=== PATIENT | female | born 1945 | race Caucasian/White ===

== ENCOUNTER 2017-04-07 12:14 | Day surgery (SDC) | payer MEDICARE, BC ==
--- NOTE | 2017-04-02 18:28 | PREOPHP ---
DATE OF ADMISSION: 04/07/2017 REASON FOR CONSULTATION: Consultation requested by Dr. Leo Rievro for medical evaluation and clearance of a 72-year-old woman about to undergo surgery. Thank you, Dr. Rivero, for allowing us to participate in the care of this patient. HISTORY OF PRESENT ILLNESS: Zeina Small is a 72-year-old woman, issues with abdominal wall hernias, had 1 repaired and removed in 09/2015. It has recurred at this point and is scheduled for correction of that particular hernia at this point. PAST MEDICAL AND SURGICAL HISTORY: The patient, as mentioned above, had an incisional hernia repair done a year and a half ago. Also, had left and right mastectomies for breast cancer with a prosthesis on the right somehow not on the left laparoscopic cholecystectomy, had a tubal ligation and had a left hip replacement. She has had no medical hospitalizations other than for chemotherapy for her breast cancer and also had radiation treatment for her breast cancer. She has broken a couple of toes, but no major big bones. She takes medications given to her by her oncologist for targeted therapy for her breast cancer which is metastatic. ALLERGIES: SHE IS ALLERGIC TO ADHESIVE TAPE. SOCIAL HISTORY: The patient is single, has no children. She does not smoke or drink alcohol or coffee. Usually has no difficulty sleeping at night. FAMILY HISTORY: Both parents are . Father in his 90s of old age, mother in her 80s of an accident. Three siblings have . There is cancer in the family. She knows of no diabetes, heart, hypertension, or stroke. REVIEW OF SYSTEMS: HEENT: Occasional tension headaches, but not usually. CARDIORESPIRATORY: Denies any chest pain or shortness of breath. GASTROINTESTINAL: No melena or hematemesis, but is LACTOSE INTOLERANT. GENITOURINARY: No urgency, frequency. GYNECOLOGIC: Postmenopause. MUSCULOSKELETAL: For arthritis. NEUROPSYCHIATRIC: Unremarkable. GENERAL HEALTH: As above. PHYSICAL EXAMINATION: VITAL SIGNS: The patient's blood pressure was 130/75, pulse was 69 and regular , respirations were 18, temperature 98, height 5 feet 6 inches, weight 151 pounds. GENERAL: The patient was noted to be a well-developed, well-nourished female, alert and cooperative, in no apparent acute distress, well oriented to time, place, and person. HEAD, EARS, EYES, NOSE AND THROAT: Head was atraumatic. Eyes: Pupils were equal, reactive to light and accommodation. Fundi were benign. Tympanic membranes were unremarkable. Nose was negative. Mouth was unremarkable. Fair oral hygiene was present. NECK: Supple without any rigidity. Trachea was midline. Thyroid was within normal limits. Neck veins were flat. Carotid pulses were equal. No bruits were heard. BACK: Unremarkable. CHEST: Revealed evidence of bilateral mastectomies with a small implant on the right and possible on the left. No breast or axillary masses being palpable. LUNGS: Clear to percussion and auscultation. HEART: PMI is fifth intercostal space at the midclavicular line. Regular sinus rhythm was noted. No significant murmurs, rubs, or gallops being elicited. ABDOMEN: Soft, good bowel sounds were noted. Scars from prior surgery was noted and a suprapubic hernia was noted approximately a size of an orange. There was no other organomegaly, masses, or tenderness. GENITALIA: Normal female external genitalia. PELVIC/RECTAL: Up to date with her dress draper. EXTREMITIES: Did not reveal any clubbing, edema or cyanosis. Scar was noted from her prior joint replacement. Peripheral pulses were physiologic. SKIN: Moist and warm without any eruptions. No gross lymphadenopathy was noted. NEUROLOGIC: Grossly intact. IMPRESSION: 1. Abdominal wall or suprapubic hernia. 2. Post bilateral mastectomy for breast cancer. 3. Menopausal syndrome. 4. Hyperlipidemia. 5. Stable health. LABORATORY DATA: Review of laboratory and other data revealed the following: The patient's chemistry panel including electrolytes, glucose, BUN, creatinine, liver function tests, iron was minimally low, CBC, UA, PT, PTT and sed rate were basically normal. The patient's EKG and chest x-ray done less than a month ago were all within acceptable limits. Some nonspecific ST-T wave changes were noted to have stable EKG. DISCUSSION: I see no contraindication in this patient undergoing current proposed surgery under desired form of anesthesia and feels she is a suitable candidate at this particular point in time. Should any medical problems arise during her stay at [facility], we will be more than happy to follow her up at the appropriate times. Thank you again, Dr. Rivero, for participating and allowing us to participate in the care of our patient. Dictated By: STEPHANY SZYMANSKI MD SS/KONSTANTIN Conf#: [id number] DID#: [id number] CC: АННА RIVERO MD;*EndCC* MTDD
[~2017-04-07] VITALS: Ht 167.6 cm; Wt 68.0 kg
[2017-04-07] VITALS (31 sets, daily range): BP systolic 138–205; BP diastolic 66–94; PULSE 74–96; RESP 12–31; Ht 167.6 cm; Wt 68.0 kg
[~2017-04-07 12:14] MED LIST: ATOR20TA38 PO; EXEM25TA PO; POTA25TA PO; SERT50TA6 PO
[2017-04-07] MEDS ORDERED: EVER10TA PO (12:45)
[2017-04-07] MEDS ORDERED: POTA20TA96 PO (12:46)
[2017-04-07] MEDS ORDERED: CEFAZOLIN 2 GM/50 ML (PMX) 50 ML IVPB ONE (13:30)
--- NOTE | 2017-04-07 14:17 | HPN ---
Date/Time of Note Date/Time of Note DATE: 04/07/17 TIME: 14:17 Interval H&P Admission Note Pt. seen H&P reviewed: No system changes АННА RIVERO MD Apr 07, 2017 14:17
[2017-04-07] MEDS ORDERED: LIDOCAINE 2% (SDV) 5 ML INJ ONE (14:35)
[2017-04-07] MEDS ORDERED: PROPOFOL 20 ML ONE (14:35)
[2017-04-07] MEDS ORDERED: ONDANSETRON 4 MG INJ ONE (14:36)
[2017-04-07] MEDS ORDERED: BUPIVACAINE 0.25%/EPI (SDV) 30 ML INJ ONE (14:36)
[2017-04-07] MEDS ORDERED: LIDOCAINE 1% (MPF) 30 ML INJ ONE (14:36)
[2017-04-07] MEDS ORDERED: ROCURONIUM 50 MG INJ ONE (14:37)
[2017-04-07] MEDS ORDERED: FENTAnyl 50 MCG/ML VIAL ONE (14:39)
[2017-04-07] MEDS ORDERED: CEFAZOLIN 1 GM INJ ONE ×2 (15:02→15:27)
[2017-04-07] MEDS ORDERED: STERILE WATER 1L IRRIG BTL IRR ONE (15:58)
[2017-04-07] MEDS ORDERED: GLYCOPYRROLATE 0.4 MG INJ ONE (15:58)
[2017-04-07] MEDS ORDERED: NEOSTIGMINE 3 MG/3 ML SYRINGE ONE (16:17)
[2017-04-07] MEDS ORDERED: LIDOCAINE 1% (MPF) 30 ML INJ INJ ONE (16:36)
[2017-04-07] MEDS ORDERED: BUPIVACAINE 0.25%/EPI (SDV) 10 ML INJ INJ ONE (16:37)
[2017-04-07] MEDS: LABETALOL HCL 20MG INJ IV PRN ×3 (17:05→18:41)
[2017-04-07] MEDS ORDERED: LABETALOL HCL 20MG INJ ONE (17:09)
--- NOTE | 2017-04-07 17:24 | OPR ---
Date/Time of Note Date/Time of Note DATE: 04/07/17 TIME: 17:04 Operative Report Procedure Date: Apr 07, 2017 Preoperative Diagnosis . Postoperative Diagnosis . Surgeon . Egg Worker . Anesthesia Type: general Estimated Blood Loss: other Transfusion none Specimen . Grafts/Implants . Complications none Procedure Description Preoperative Diagnosis: Ventral suprapubic incisional hernia Postoperative Diagnosis: 1. Ventral suprapubic incisional hernia 2. Significant adhesions Operation Performed: 1. Laparoscopic ventral incisional herniorrhaphy 2. Laparoscopic extensive lysis of adhesions 3. [place] anesthetic [place], [id number] 4. Laparoscopic guided bilateral transversus abdominis plane block Surgeon: Robbie Martinez MD Egg Worker: Dunia Welch NP Anesthesia: general plus local plus regional Anesthesiologist: ELSA Funes Estimated Blood Loss: 20 ml's Specimens: None Tubes/Drains: [address] circular mesh Secure strap tacker Complications: None Pt Condition Post Procedure: stable Disposition: PACU Indications 72-year-old female here for ventral herniorrhaphy. She has had a tram for reconstruction with resultant hernias. Patient had previous repair at different site that is still intact. However, she has developed hernia in left suprapubic region. Risks include but are not limited to bleeding, infection, abscess, seroma, leak , damage to intestines or any intra-abdominal/intrapelvic structures, hernia formation or recurrent, chronic pain, need for re-operations or further surgeries, NE, stroke, PE, DVT, pneumonia, organ failures, or even . Procedure Description: Patient was brought and placed supine on the operating table SCDs were placed, preoperative antibiotics were administered, all pressure points were well-padded , Both arms were tucked, and after induction of anesthesia patient was prepped and draped in usual sterile fashion and timeout was performed. Incision was made in the left upper quadrant, and using Optiview port and a 5 mm 0 scope abdomen was entered and insufflated to 15mmHg. Laparoscopy was performed with a 5 mm 30 scope. No injuries were identified. Another 5 mm port and a 12 mm port were placed in the right lower quadrant. 3 cm ventral hernia was identified suprapubically. There was extensive adhesions of omentum to the abdominal wall. All port sites were injected with half percent Marcaine with epi and 1% lidocaine prior to any incisions. Bilateral transversus abdominis plane block was performed under laparoscopic visualization to aid with pain control intra-and postoperatively. Using sharp dissection I was able to open up enough space to allow repair of the ventral hernia. There was extensive adhesions of omentum to abdominal wall. There was complete hemostasis after ligasure used to control oozing. Using Endo Close, #1 Vicryl sutures were placed across the defect to approximated in a [id number] manner. Mesh was placed through the 12 mm port intra-abdominally with 4 tacking sutures of #1 Vicryl. After the mesh was positioned covering all hernia sites with at least 5 cm coverage on either side , transfacial sutures were exteriorized with an Endo Close. Then the secure strap tacker was used to tack the mesh circumferentially after the abdominal pressure was decreased to 10. There was complete hemostasis. 12 mm made port site fascia was closed with Endo Close and 0 Vicryl in a figure- of-eight manner. Ports and CO2 were removed under direct visualization. There was complete hemostasis. Wounds were thoroughly irrigated skin was closed with 4 -0 Monocryl in subcuticular fashion. Dermabond was applied. Patient was extubated and transferred to recovery room in stable condition and all counts were correct and the end of the operation 2. Abdominal binder was applied. Copies To: CC: STEPHANY SZYMANSKI MD, SAMUEL MD Apr 07, 2017 17:18
[2017-04-07] MEDS ORDERED: ONDANSETRON 4 MG INJ IV PRN ×2 (17:30)
[2017-04-07] MEDS ORDERED: HYDROCODONE/APAP (5/325) TAB PO PRN (17:30)
[2017-04-07] MEDS ORDERED: morphine 2 MG INJ IV PRN (17:30)
[2017-04-07] MEDS ORDERED: FENTAnyl 50 MCG/ML VIAL IV PRN (17:30)
[2017-04-07] MEDS ORDERED: HYDROmorphONE (0.2 MG/ML) 10ML SYG IV PRN ×2 (17:30)
[2017-04-07] MEDS: hydrALAzine 20 MG INJ IV PRN ×2 (17:51→18:11)
[2017-04-07] MEDS ORDERED: ACETAMINOPHEN 325 MG TAB PO PRN (20:00)
[2017-04-07] MEDS ORDERED: ZOLPIDEM 5 MG TAB PO PRN (20:00)
[2017-04-07] MEDS ORDERED: NACL 0.9% 3 ML SYG IV SCH (20:00)
[2017-04-07] MEDS: LISINOPRIL 20 MG TAB PO SCH (21:00)
[2017-04-07] MEDS: METOPROLOL (XL) 50 MG TAB PO SCH (21:00)
[2017-04-07] MEDS: FAMOTIDINE 20 MG TAB PO SCH (23:21)
[2017-04-07] MEDS: HEPARIN 5,000 UNIT/0.5 ML VIAL SC SCH (23:24)
[2017-04-07] MEDS: LACTATED RINGER'S 1,000 ML IV SCH (23:48)
[2017-04-08 00:28] VITALS: BP 112/75; RESP 18
[2017-04-08] MEDS: LACTATED RINGER'S 1,000 ML IV SCH (02:50)
[2017-04-08] MEDS: HYDROCODONE/APAP (5/325) TAB PO PRN ×2 (04:15→10:06)
[2017-04-08 05:56] LABS: BASOPHILS % 0.1 % (0.0-2.0); HEMATOCRIT 41.5 % (37.0-47.0); HEMOGLOBIN 13.1 g/dl (12.0-16.0); LYMPHOCYTES # 0.7 10^3/ul (0.8-2.9); LYMPHOCYTES % 7.3 % (15.0-51.0); MEAN CORPUSCULAR HEMOGLOBIN 25.1 pg (29.0-33.0); MEAN CORPUSCULAR HGB CONC 31.6 g/dl (32.0-37.0); MEAN CORPUSCULAR VOLUME 79.7 fl (82.0-101.0); MEAN PLATELET VOLUME 8.8 fl (7.4-10.4); MONOCYTE # 0.5 10^3/ul (0.3-0.9); MONOCYTES % 5.6 % (0.0-11.0); NEUTROPHIL # 8.4 10^3/ul (1.6-7.5); NEUTROPHILS % 86.6 % (39.0-77.0); PLATELET COUNT 230 10^3/UL (140-415); RED BLOOD COUNT 5.21 10^6/ul (4.20-5.40); RED CELL DISTRIBUTION WIDTH 14.4 % (11.5-14.5); WHITE BLOOD COUNT 9.7 10^3/ul (4.8-10.8)
[2017-04-08 06:55] LABS: ALBUMIN 3.8 g/dl (3.3-4.9); ALBUMIN/GLOBULIN RATIO 1.05; BILIRUBIN,INDIRECT 0.5 mg/dl (0-1.1); BILIRUBIN,TOTAL 0.5 mg/dl (0.2-1.3); CALCIUM 8.2 mg/dl (8.4-10.2); CREATININE 1.09 mg/dl (0.44-1.00); POTASSIUM 4.2 mmol/L (3.5-5.1); TOTAL PROTEIN 7.4 g/dl (6.1-8.1)
--- NOTE | 2017-04-08 08:13 | CONS ---
Date/Time of Note Date/Time of Note DATE: 04/08/17 TIME: 08:07 Consult Date/Type/Reason Admit Date/Time Apr 07, 2017 at 19:29 Initial Consult Date Type of Consultation: internal medicine Reason for Consultation pre-op medical evaluation and clearance Ordering Provider: АННА RIVERO MD Subjective had a good night no complaints Objective Vital Signs Date Time Temp Pulse Resp B/P Pulse Ox O2 Delivery O2 Flow Rate FiO2 04/08/17 00:28 98.2 72 18 112/75 95 04/07/17 20:31 Room Air 04/07/17 17:03 6.0 Intake and Output 04/07/17 04/07/17 04/08/17 15:00 23:00 07:00 Intake Total 800 ml 975 ml Output Total 200 ml Balance 800 ml 775 ml Exam vss heent negative lungs clear heart regular rhythm abdomen post-op dressing present Results/Medications Result Diagram: 04/08/17 0529 04/08/17 0528 Results 24 hrs Laboratory Tests Test 04/08/17 05:28 04/08/17 05:29 Sodium Level 142 Potassium Level 4.2 Chloride Level 110 Carbon Dioxide Level 23 Anion Gap 13 Blood Urea Nitrogen 17 Creatinine 1.09 H Glucose Level 119 Calcium Level 8.2 L Total Bilirubin 0.5 Direct Bilirubin 0.00 Indirect Bilirubin 0.5 Aspartate Amino Transf (AST/SGOT) 43 Alanine Aminotransferase (ALT/SGPT) 42 Alkaline Phosphatase 64 Total Protein 7.4 Albumin 3.8 Globulin 3.60 H Albumin/Globulin Ratio 1.05 White Blood Count 9.7 Red Blood Count 5.21 Hemoglobin 13.1 Hematocrit 41.5 Mean Corpuscular Volume 79.7 L Mean Corpuscular Hemoglobin 25.1 L Mean Corpuscular Hemoglobin Concent 31.6 L Red Cell Distribution Width 14.4 Platelet Count 230 Mean Platelet Volume 8.8 Neutrophils % 86.6 H Lymphocytes % 7.3 L Monocytes % 5.6 Eosinophils % 0.0 Basophils % 0.1 Nucleated Red Blood Cells % 0.0 Neutrophils # 8.4 H Lymphocytes # 0.7 L Monocytes # 0.5 Eosinophils # 0.0 Basophils # 0.0 Nucleated Red Blood Cells # 0.0 Medications Current Medications Lactated Ringer's (Lr) 1,000 ml @ 75 mls/hr [id number] IV Last administered on 23:48; Admin Dose 75 MLS/HR; Start 04/07/17 at 13:30 Metoprolol Succinate (Toprol Xl) 50 mg BID PO ; Start 04/07/17 at 21:00 Lisinopril (Zestril) 20 mg BID PO ; Start 04/07/17 at 21:00 Acetaminophen (Tylenol Tab) 650 mg Q6H PRN PO PAIN LEVEL 1-3 OR FEVER; Start 04/07/17 at 20:00 Acetaminophen/ Hydrocodone Bitart ([place] (5/325)) 1 tab Q6H PRN PO MODERATE PAIN LEVEL 4-6 Last administered on 04/08/17 04:15; Admin Dose 1 TAB; Start 04/07/17 at 20:00 Zolpidem Tartrate (Ambien) 5 mg QHS PRN PO SLEEP; Start 04/07/17 at 20:00 Famotidine (Pepcid) 20 mg Q12 PO Last administered on 04/07/17 23:21; Admin Dose 20 MG; Start 04/07/17 at 21:00 Heparin Sodium (Porcine) (Heparin (5000 Units/0.5 ml)) 5,000 unit Q12 SC Last administered on 04/07/17 23:24; Admin Dose 5,000 UNIT; Start 04/07/17 at 21: 00 Assessment/Plan Chief Complaint/Hosp Course had a good night doesnt remember much about yesterday-feeling well today Problems: Additional Assessment/Plan plan per dr rivero should be ready to go home today--thank you STEPHANY Carbajal MD Apr 08, 2017 08:13
[2017-04-08 08:20] VITALS: BP 140/64; RESP 18
[2017-04-08] MEDS: LISINOPRIL 20 MG TAB PO SCH (08:36)
[2017-04-08] MEDS: FAMOTIDINE 20 MG TAB PO SCH (08:36)
[2017-04-08] MEDS: METOPROLOL (XL) 50 MG TAB PO SCH (08:37)
[2017-04-08] MEDS: HEPARIN 5,000 UNIT/0.5 ML VIAL SC SCH (08:39)
--- NOTE | 2017-04-08 11:09 | PN ---
Date/Time of Note Date/Time of Note DATE: 04/08/17 TIME: 10:58 Assessment/Plan Lines/Catheters IV Catheter Type (from Nrsg): Peripheral IV Assessment/Plan Chief Complaint/Hosp Course 1. Ventral suprapubic incisional hernia s/p hernia repair --IS -ambulate -ice pack to abdominal wall -diet as tolerated -may be discharged with follow up in office in 1-2 weeks 2. Abdominal pain: 2/2 above -pain management- attempt non-narcotics first -ice pack to abd wall 3. Hypertension: ? pain-induced; improved -follow up with pmd 4. Metastatic breast CA -follow up outpatient oncologist 5. Hyperlipidemia -medical management -optimize nutrition Thank you. Patient seen and examined in collaboration with Dr. Robbie Martinez. Problems: Subjective 24 Hr Interval Summary Feels well. BP improved. Still with abdominal discomfort-improved with medications. +bowel function. No incisional drainage/ erythema/ discoloration or bruising. No fevers, chills. Exam/Review of Systems Vital Signs Vitals Vital Signs Date Time Temp Pulse Resp B/P Pulse Ox O2 Delivery O2 Flow Rate FiO2 04/08/17 08:20 98.6 95 18 140/64 97 04/07/17 20:31 Room Air 04/07/17 17:03 6.0 Intake and Output 04/07/17 04/07/17 04/08/17 15:00 23:00 07:00 Intake Total 800 ml 975 ml Output Total 200 ml Balance 800 ml 775 ml Exam Constitutional: alert, oriented Psych: nl mood/affect Head: atraumatic, normocephalic Eyes: nl lids, nl sclera ENMT: mucosa pink and moist, nl nasal mucosa & septum Neck: non-tender, supple Respiratory: normal air movement Cardiovascular: nl pulses, regular rate and rhythm Gastrointestinal: soft, tender (min ko-incisional), No distended Genitourinary - Female: nl adnexae, nl external genitalia Musculoskeletal: nl extremities to inspection, nl gait and stance Extremities: normal pulses Neurological: nl mental status, nl speech, nl strength Skin: nl turgor, rash or lesions Lymph: nl lymph nodes Results Result Diagram: 04/08/17 0529 04/08/17 0528 KAREN JOHNSON NP Apr 08, 2017 11:09
== END 2017-04-08 12:20 | disposition home or self-care (01) ==
LOC: SDS 12:14 → MS1 19:28 → UNDOADMIN 19:29 → MS1 19:29 → UNDODISIN 04-08 12:20 → SDS 04-08 12:20
PROVIDERS: ATTEND Surgery
DX: K43.2 Incisional hernia without obstruction or gangrene (principal); E78.5 Hyperlipidemia, unspecified
CPT/HCPCS: 49654; 80053; 85025; J0360; J0690; J1170; J1644; J2405; J2710; J3010; J7120; G0378